=== PATIENT | female | born 1980 ===

== ENCOUNTER 2017-06-21 14:20 | Emergency (ER) | payer SELFPAY ==
[2017-06-21 14:57] VITALS: BP 141/71; PULSE 77; RESP 18; TEMP 98.1; O2SAT 99
[2017-06-21] MEDS ORDERED: Sodium Chloride 0.9% 1,000 ML IV STA (15:19)
[2017-06-21] MEDS ORDERED: Iohexol 240 (50 ml) PO ONE (15:19)
--- NOTE | 2017-06-21 15:27 | ED PDOC ---
HPI: Abdomen Time Seen by Provider: 06/21/17 15:04 Chief Complaint (Nursing): Groin Pain Chief Complaint (Provider): Abdominal pain History Per: Patient History/Exam Limitations: no limitations Onset/Duration Of Symptoms: Days (x7) Current Symptoms Are (Timing): Still Present Additional Complaint(s): Zoey Dennison is a 37 year old female with a past medical history of chronic left leg pain occurring for 2-3 years for which she takes Naproxen, presenting to the ED for an evaluation of abdominal pain and persistent left leg pain occurring for 1 week. The patient reports lower abdominal pain worsening when holding her urine. She denies dysuria, nausea, vomiting, diarrhea , urinary incontinence, urinary frequency, any changes in her menstrual cycle, shortness of breath, chest pain, fever, chills, dizziness, numbness, tingling, weakness, or headache. PMD: [facility] Past Medical History Reviewed: Historical Data, Nursing Documentation, Vital Signs Vital Signs: Last Vital Signs Temp 98.1 F 06/21/17 14:56 Pulse 77 06/21/17 14:56 Resp 18 06/21/17 14:56 BP 141/71 06/21/17 14:56 Pulse Ox 99 06/21/17 15:31 - Medical History PMH: No Chronic Diseases - Surgical History Surgical History: Cholecystectomy, - Family History Family History: States: No Known Family Hx - Social History Current smoker - smoking cessation education provided: No Ex-Smoker (has not smoked in the last 12 months): No Alcohol: None Drugs: Denies - Home Medications Home Medications: Ambulatory Orders Medication Instructions Recorded Ibuprofen [Motrin] 600 mg PO Q6H PRN #15 tab 02/19/15 - Allergies Allergies/Adverse Reactions: Allergies Allergy/AdvReac Type Severity Reaction Status Date / Time No Known Allergies Allergy Verified 06/21/17 14:50 Review of Systems ROS Statement: Except As Marked, All Systems Reviewed And Found Negative Constitutional: Negative for: Fever, Chills Respiratory: Negative for: Shortness of Breath Gastrointestinal: Positive for: Abdominal Pain (lower abdominal pain). Negative for: Nausea, Vomiting, Diarrhea Genitourinary Female: Negative for: Dysuria, Frequency, Incontinence, Vaginal Discharge, Vaginal Bleeding Musculoskeletal: Positive for: Leg Pain (left lower extremity pain (chronic)) Neurological: Negative for: Weakness, Numbness, Headache, Dizziness, Other (no tingling) Physical Exam - Reviewed Nursing Documentation Reviewed: Yes Vital Signs Reviewed: Yes - Physical Exam Appears: Positive for: Non-toxic, No Acute Distress Head Exam: Positive for: ATRAUMATIC, NORMOCEPHALIC Skin: Positive for: Normal Color, Warm, Dry Eye Exam: Positive for: Normal appearance, EOMI Neck: Positive for: Normal, Painless ROM, Supple Cardiovascular/Chest: Positive for: Regular Rate, Rhythm, Chest Non Tender. Negative for: Murmur Respiratory: Positive for: Normal Breath Sounds. Negative for: Respiratory Distress Gastrointestinal/Abdominal: Positive for: Soft, Tenderness (across lower abdomen ). Negative for: Mass, Distended, Rebound Pelvic Exam: Negative for: Other (no pelvic tenderness) Back: Positive for: Normal Inspection. Negative for: L CVA Tenderness, R CVA Tenderness, Vertebral Tenderness Extremity: Positive for: Normal ROM. Negative for: Pedal Edema, Deformity Neurologic/Psych: Positive for: Alert, Oriented (x3). Negative for: Motor/ Sensory Deficits - Laboratory Results Result Diagrams: 06/21/17 16:12 06/21/17 16:12 Interpretation Of Abn Labs: no acute - ECG O2 Sat by Pulse Oximetry: 99 (RA) Pulse Ox Interpretation: Normal - Progress ED Course And Treament: 1638: Dr. Florez to fu on ct and urine. Dispo accordingly. Medical Decision Making Medical Decision Making: Time: 15:04 Impression: Lower Abdominal Pain and chronic left lower extremity pain Plan: * CMP * CBC (with differential) * NS 0.9% 1,000 ml IV 1,000 mls/hr * Omnipaque 50 ml PO * Toradol 15 mg IVP * CT Abd Pelvis PO & IV Contrast * Reevaluation Scribe Attestation: Documented by Latesha May, acting as a scribe for Omid Guevara MD. Provider Scribe Attestation: All medical record entries made by the Scribe were at my direction and personally dictated by me. I have reviewed the chart and agree that the record accurately reflects my personal performance of the history, physical exam, medical decision making, and the department course for this patient. I have also personally directed, reviewed, and agree with the discharge instructions and disposition. Disposition - Clinical Impression Clinical Impression: Abdominal pain - Patient ED Disposition Is Patient to be Admitted: Transfer of Care - Disposition Disposition: Transfer of Care Disposition Time: 16:39 Condition: STABLE Patient Signed Over To: Rose Florez
[2017-06-21] MEDS ORDERED: Iohexol 240 (50 ml) ONE (16:17)
[2017-06-21 16:23] LABS: BASO # 0.1 K/uL (0.0-0.2); BASO % 1.1 % (0.0-2.0); EOS # 0.3 K/uL (0.0-0.7); EOS % 4.7 % (0.0-4.0); HEMATOCRIT 29.6 % (34.0-47.0); LYMPH # 2.4 K/uL (1.0-4.3); MEAN CORPUSCULAR HEMOGLOBIN 22.8 pg (27.0-31.0); MEAN CORPUSCULAR HGB CONC 30.8 g/dL (33.0-37.0); MEAN PLATELET VOLUME 7.7 fl (7.2-11.7); MONO # 0.6 K/uL (0.0-0.8); MONO % 10.3 % (0.0-10.0); NEUT # 2.2 K/uL (1.8-7.0); NEUT % 39.9 % (50.0-75.0); NRBC % 0.2 % (0.0-0.0); RED CELL DISTRIBUTION WIDTH 16.6 % (11.5-14.5); WHITE BLOOD COUNT 5.5 K/uL (4.8-10.8)
[2017-06-21 16:27] LABS: BLOOD UREA NITROGEN 13 mg/dl (7-17); CARBON DIOXIDE 27 mmol/L (22-30); CHLORIDE 103 mmol/L (98-107); GFR AFRICAN-AMERICAN > 60; GLUCOSE,RANDOM 92 mg/dL (65-105); POTASSIUM 3.7 MMOL/L (3.6-5.0); SODIUM 134 mmol/l (132-148)
[2017-06-21 16:28] LABS: ALB/GLOB RATIO 1.2 (1.0-2.1); ALKALINE PHOSPHATASE 73 U/L (38-126); ALT/SGPT 41 U/L (9-52); AST/SGOT 29 U/L (14-36); BILIRUBIN,TOTAL 0.4 mg/dl (0.2-1.3); CALCIUM 9.1 mg/dL (8.4-10.2); TOTAL PROTEIN 7.5 G/DL (6.3-8.2)
[2017-06-21] MEDS ORDERED: Iohexol 300 100 ML IJ ONE (18:52)
--- NOTE | 2017-06-21 20:36 | CT ---
EXAM: CT Abdomen and Pelvis With Intravenous Contrast EXAM DATE/TIME: 06/21/2017 3:17 PM CLINICAL HISTORY: 37 years old, female; Pain; Abdominal pain; Localized; Left lower quadrant (llq); Prior surgery; Surgery date: 6+ months; Surgery type: Gb removed. -1; Additional info: Abd pain. Sent phy. Doc. TECHNIQUE: Axial computed tomography images of the abdomen and pelvis with intravenous contrast. All CT scans at this facility use one or more dose reduction techniques, viz.: automated exposure control; ma/kV adjustment per patient size (including targeted exams where dose is matched to indication; i.e. head); or iterative reconstruction technique. Coronal and sagittal reformatted images were created and reviewed. CONTRAST: 95 mL of [id number] administered intravenously. COMPARISON: There are no prior studies for comparison. FINDINGS: Lower thorax: Heart size is normal. There are minimal patchy opacities at the right base.. There is mild pleural thickening at the right base. There is scarring greatest in the lingula and in the left lower lobe. There is minimal bronchiectasis in the left lower lobe. ABDOMEN: Liver: There is fatty infiltration of the liver. Gallbladder and bile ducts: The gallbladder is surgically absent. Common duct is prominent. There is pneumobilia. Pancreas: unremarkable Spleen: unremarkable Adrenals: unremarkable Kidneys and ureters: unremarkable Stomach and bowel: Stomach is incompletely distended. Rotation is normal. There is no small bowel obstruction.There is no pericecal inflammation. Appendix is not visualized. Terminal ileum is unremarkable.There is contrast throughout the colon. There is mild inflammation in the left lower quadrant anterolateral to the proximal sigmoid. There is a fatty nodule associated with the inflammation. There is sigmoid diverticulosis. Appendix: See stomach and bowel PELVIS: Bladder: unremarkable Reproductive: Uterus is enlarged with multiple masses. Contours are lobular. There is prominence of the adnexa. There is a dominant follicle in the right adnexa. ABDOMEN and PELVIS: Intraperitoneal space: There is no free air or free fluid. Bones/joints: There are degenerative changes in the osseus structures. Soft tissues: There is a small fat containing umbilical hernia. Vasculature: Vascular structures are unremarkable. Lymph nodes: There is no pathologic adenopathy. IMPRESSION: Cholecystectomy with mildly dilated common duct and pneumobilia; fatty liver; inflammatory change in the left lower quadrant suggesting epiploic appendicitis; diverticulosis without CT findings of diverticulitis Additional findings as described above.
--- NOTE | 2017-06-21 20:47 | ED PDOC ---
- Laboratory Results Result Diagrams: 06/21/17 16:12 06/21/17 16:12 - ECG O2 Sat by Pulse Oximetry: 99 (RA) - Progress ED Course And Treament: TECHNIQUE: Axial computed tomography images of the abdomen and pelvis with intravenous contrast. All CT scans at this facility use one or more dose reduction techniques, viz.: automated exposure control; ma/kV adjustment per patient size (including targeted exams where dose is matched to indication; i.e. head); or iterative reconstruction technique. Coronal and sagittal reformatted images were created and reviewed. CONTRAST: 95 mL of [id number] administered intravenously. COMPARISON: There are no prior studies for comparison. FINDINGS: Lower thorax: Heart size is normal. There are minimal patchy opacities at the right base.. There is mild pleural thickening at the right base. There is scarring greatest in the lingula and in the left lower lobe. There is minimal bronchiectasis in the left lower lobe. ABDOMEN: Liver: There is fatty infiltration of the liver. Gallbladder and bile ducts: The gallbladder is surgically absent. Common duct is prominent. There is pneumobilia. Pancreas: unremarkable Spleen: unremarkable Adrenals: unremarkable Kidneys and ureters: unremarkable Stomach and bowel: Stomach is incompletely distended. Rotation is normal. There is no small bowel obstruction.There is no pericecal inflammation. Appendix is not visualized. Terminal ileum is unremarkable.There is contrast throughout the colon. There is mild inflammation in the left lower quadrant anterolateral to the proximal sigmoid. There is a fatty nodule associated with the inflammation. There is sigmoid diverticulosis. Appendix: See stomach and bowel PELVIS: Bladder: unremarkable Reproductive: Uterus is enlarged with multiple masses. Contours are lobular. There is prominence of the adnexa. There is a dominant follicle in the right adnexa. ABDOMEN and PELVIS: Intraperitoneal space: There is no free air or free fluid. Bones/joints: There are degenerative changes in the osseus structures. Soft tissues: There is a small fat containing umbilical hernia. Vasculature: Vascular structures are unremarkable. Lymph nodes: There is no pathologic adenopathy. IMPRESSION: Cholecystectomy with mildly dilated common duct and pneumobilia; fatty liver; inflammatory change in the left lower quadrant suggesting epiploic appendicitis ; diverticulosis without CT findings of diverticulitis Additional findings as described above. On reevaluation pt comfortable. DW pt findings and plan of care. Rx ibuprofen and iron supplement Disposition Counseled Patient/Family Regarding: Studies Performed, Diagnosis, Need For Followup, Rx Given - Clinical Impression Clinical Impression: Abdominal pain, Epiploic appendagitis, Anemia - POA Present On Arrival: None - Disposition Referrals: [facility] [Outside] - 06/22/17 (VISITA A LA CLINICA EN 1-2 DIEZ A CHEQAR DE NUEVO) Disposition: Routine/Home Disposition Time: 20:48 Condition: IMPROVED Prescriptions: Ferrous Sulfate [Feosol] 325 mg PO TID #30 tab Ibuprofen [Motrin Tab] 600 mg PO Q8 PRN #60 tab PRN Reason: Pain, Moderate (4-7) Instructions: Acute Abdominal Pain (ED), Anemia (ED) Print Language: ISRAELI
== END 2017-06-21 21:05 | disposition home or self-care (01) ==
LOC: H.ER 14:20
DX: R10.30 Lower abdominal pain, unspecified (principal); D64.9 Anemia, unspecified; K63.89 Other specified diseases of intestine; K76.0 Fatty (change of) liver, not elsewhere classified; K83.8 Other specified diseases of biliary tract; Z87.891 Personal history of nicotine dependence; Z90.49 Acquired absence of other specified parts of digestive tract
CPT/HCPCS: 74177; 80053; 81025; 85025; 96360; 99284; J7040; Q9966; Q9967

== ENCOUNTER 2017-07-23 17:07 | Emergency (ER) | payer SELFPAY ==
[2017-07-23 17:20] VITALS: BP 142/71; PULSE 88; RESP 16; TEMP 99.6; O2SAT 100
--- NOTE | 2017-07-23 17:36 | ED PDOC ---
HPI: General Adult Time Seen by Provider: 07/23/17 17:22 Chief Complaint (Nursing): Flu-like Symptoms Chief Complaint (Provider): Flu-Like Symptoms History Per: Patient History/Exam Limitations: no limitations Onset/Duration Of Symptoms: Days (x3) Current Symptoms Are (Timing): Still Present Additional Complaint(s): 37 year old female presents to ED with complaints of flu-like symptoms x3 days and has no past medical history. (+) cough, congestion, body aches, sore throat , and fever. (-) chest pain, SOB, hemoptysis, palpitations, nausea, or vomiting. Denies receiving flu vaccine this flu season. PCP: Magali Dukes Past Medical History Reviewed: Historical Data, Nursing Documentation, Vital Signs Vital Signs: Last Vital Signs Temp 99.6 F 07/23/17 17:18 Pulse 88 07/23/17 17:18 Resp 16 07/23/17 17:18 BP 142/71 07/23/17 17:18 Pulse Ox 100 07/23/17 17:38 - Medical History PMH: No Chronic Diseases - Family History Family History: States: No Known Family Hx - Living Arrangements Living Arrangements: With Family - Home Medications Home Medications: Ambulatory Orders Medication Instructions Recorded Benzonatate [Tessalon Perle] 1 - 2 cap PO Q8 PRN #30 capsule 07/23/17 Ibuprofen [Motrin Tab] 800 mg PO Q8 PRN #20 tab 07/23/17 - Allergies Allergies/Adverse Reactions: Allergies Allergy/AdvReac Type Severity Reaction Status Date / Time No Known Allergies Allergy Verified 07/23/17 17:17 Review of Systems ROS Statement: Except As Marked, All Systems Reviewed And Found Negative Constitutional: Positive for: Fever, Other ((+) body aches) ENT: Positive for: Nose Congestion, Throat Pain Cardiovascular: Negative for: Chest Pain, Palpitations Respiratory: Positive for: Cough. Negative for: Shortness of Breath, Hemoptysis Gastrointestinal: Negative for: Nausea, Vomiting Physical Exam - Reviewed Nursing Documentation Reviewed: Yes Vital Signs Reviewed: Yes - Physical Exam Appears: Positive for: Non-toxic, No Acute Distress Skin: Positive for: Normal Color, Warm, Dry Eye Exam: Positive for: Normal appearance, EOMI, PERRL ENT: Positive for: Normal ENT Inspection Neck: Positive for: Normal, Painless ROM, Supple Cardiovascular/Chest: Positive for: Regular Rate, Rhythm. Negative for: Murmur Respiratory: Positive for: Normal Breath Sounds. Negative for: Respiratory Distress Gastrointestinal/Abdominal: Positive for: Soft. Negative for: Tenderness Neurologic/Psych: Positive for: Alert, Oriented. Negative for: Motor/Sensory Deficits - ECG O2 Sat by Pulse Oximetry: 100 (RA) Pulse Ox Interpretation: Normal Medical Decision Making Medical Decision Makin Initial impression: flu-like illness Scribe Attestation: Documented by Isabel Crawford, acting as a scribe for Charan Rain PA-C. Provider Scribe Attestation: All medical record entries made by the Scribe were at my direction and personally dictated by me. I have reviewed the chart and agree that the record accurately reflects my personal performance of the history, physical exam, medical decision making, and the department course for this patient. I have also personally directed, reviewed, and agree with the discharge instructions and disposition. Disposition - Clinical Impression Clinical Impression: Influenza-like symptoms - Disposition Referrals: [facility] [Outside] Disposition: Routine/Home Disposition Time: 17:34 Condition: STABLE Additional Instructions: Drink plenty of fluids. Rest. Follow up with PMD in 2 days for further evaluation. Prescriptions: Benzonatate [Tessalon Perle] 1 - 2 cap PO Q8 PRN #30 capsule PRN Reason: Cough Ibuprofen [Motrin Tab] 800 mg PO Q8 PRN #20 tab PRN Reason: Fever >100.4 F Instructions: Influenza (ED) Forms: [employer] (Omani), [facility] ED School/Work Excuse Print Language: GABONESE
--- NOTE | 2017-07-23 17:36 | ED PDOC ---
HPI: General Adult Time Seen by Provider: 07/23/17 17:22 Chief Complaint (Nursing): Flu-like Symptoms Past Medical History Vital Signs: Last Vital Signs Temp 99.6 F 07/23/17 17:18 Pulse 88 07/23/17 17:18 Resp 16 07/23/17 17:18 BP 142/71 07/23/17 17:18 Pulse Ox 100 07/23/17 17:18 - Family History Family History: States: No Known Family Hx - Home Medications Home Medications: Ambulatory Orders Medication Instructions Recorded Benzonatate [Tessalon Perle] 1 - 2 cap PO Q8 PRN #30 capsule 07/23/17 Ibuprofen [Motrin Tab] 800 mg PO Q8 PRN #20 tab 07/23/17 - Allergies Allergies/Adverse Reactions: Allergies Allergy/AdvReac Type Severity Reaction Status Date / Time No Known Allergies Allergy Verified 07/23/17 17:17 - ECG O2 Sat by Pulse Oximetry: 100 Disposition - Clinical Impression Clinical Impression: Influenza-like symptoms - Patient ED Disposition Is Patient to be Admitted: No - Disposition Referrals: [facility] [Outside] Disposition: Routine/Home Disposition Time: 17:34 Condition: STABLE Additional Instructions: Drink plenty of fluids. Rest. Follow up with PMD in 2 days for further evaluation. Prescriptions: Benzonatate [Tessalon Perle] 1 - 2 cap PO Q8 PRN #30 capsule PRN Reason: Cough Ibuprofen [Motrin Tab] 800 mg PO Q8 PRN #20 tab PRN Reason: Fever >100.4 F Instructions: Influenza (ED) Forms: [employer] (Burmese), [facility] ED School/Work Excuse Print Language: POLISH
== END 2017-07-23 17:47 | disposition home or self-care (01) ==
LOC: H.ER 17:07 → MERGE 17:07 → H.ER 17:47
DX: J11.1 Influenza due to unidentified influenza virus with other respiratory manifestations (principal)

== ENCOUNTER 2018-05-21 15:02 | Emergency (ER) | payer OTHER, SELFPAY ==
[2018-05-21 15:18] VITALS: BP 141/80; PULSE 82; RESP 18; TEMP 98.5; O2SAT 99
--- NOTE | 2018-05-21 16:04 | ED PDOC ---
HPI: Headache Time Seen by Provider: 05/21/18 15:38 Chief Complaint (Nursing): Headache Chief Complaint (Provider): headache History Per: Patient History/Exam Limitations: no limitations Onset/Duration Of Symptoms: Days (started last night) Current Symptoms Are (Timing): Still Present Severity: Mild Quality: Dull Preceeding Symptoms: None. denies: Visual Disturbances Associated Symptoms: denies: Photophobia, Blurred Vision, Nausea, Vomiting Additional History Per: Patient Additional Complaint(s): Pt. is a 38 y/o Female who reports to ED for headache that started last night. Pt. reports headache is diffuse, gradual in onset, no associated n/v, photophobia. Pt. reports history of similar headaches in past, but they usually improve with tylenol and this this time she took two doses of tylenol with little improvement. Pt. also reports mild crampy right upper abdominal pain that has been intermittent today, no associated n/v/d, no fevers. Appetite remains good. Past Medical History Reviewed: Historical Data, Nursing Documentation, Vital Signs Vital Signs: Last Vital Signs Temp 98.5 F 05/21/18 15:16 Pulse 82 05/21/18 15:16 Resp 18 05/21/18 15:16 BP 141/80 05/21/18 15:16 Pulse Ox 99 05/21/18 15:16 - Medical History PMH: No Chronic Diseases - Surgical History Surgical History: Cholecystectomy, - Family History Family History: States: Unknown Family Hx - Home Medications Home Medications: Ambulatory Orders Medication Instructions Recorded Ibuprofen [Motrin] 600 mg PO Q6H PRN #15 tab 02/19/15 Ferrous Sulfate [Feosol] 325 mg PO TID #30 tab 06/21/17 Ibuprofen [Motrin Tab] 600 mg PO Q8 PRN #60 tab 06/21/17 Benzonatate [Tessalon Perle] 1 - 2 cap PO Q8 PRN #30 capsule 07/23/17 Ibuprofen [Motrin Tab] 800 mg PO Q8 PRN #20 tab 07/23/17 Ferrous Sulfate, Dried [Iron] 160 mg PO DAILY #30 tablet.er 05/21/18 Ibuprofen [Motrin Tab] 600 mg PO TID PRN 5 Days #15 tab 05/21/18 - Allergies Allergies/Adverse Reactions: Allergies Allergy/AdvReac Type Severity Reaction Status Date / Time No Known Allergies Allergy Verified 06/21/17 14:50 Review of Systems Constitutional: Negative for: Fever, Chills, Sweats Eyes: Negative for: Vision Change ENT: Negative for: Ear Pain, Nose Congestion Cardiovascular: Negative for: Chest Pain Respiratory: Negative for: Cough Gastrointestinal: Positive for: Abdominal Pain. Negative for: Nausea, Vomiting Physical Exam - Reviewed Vital Signs Reviewed: Yes - Physical Exam Appears: Positive for: Well, Non-toxic Head Exam: Positive for: ATRAUMATIC Skin: Positive for: Normal Color, Warm, Dry Eye Exam: Positive for: Normal appearance, EOMI, PERRL ENT: Positive for: Normal ENT Inspection Neck: Positive for: Normal, Painless ROM, Supple Cardiovascular/Chest: Positive for: Regular Rate, Rhythm Respiratory: Positive for: Normal Breath Sounds Gastrointestinal/Abdominal: Positive for: Soft, Tenderness (minimal diffuse abdominal tenderness). Negative for: Distended, Guarding, Rebound - Laboratory Results Result Diagrams: 05/21/18 16:22 05/21/18 16:22 - ECG O2 Sat by Pulse Oximetry: 99 Pulse Ox Interpretation: Normal Medical Decision Making Medical Decision Making: IVF, IV Reglan, IV Toradol given. Labs ordered. u. preg neg On reassessment, pt. feeling better, no further headache..Pt. ambulating with steady gait. Repeat abd. exam, abd. is soft/nt, pt. tolerating po. Labs as above, mild anemia hgb 8.8, however not sig. changed from previous labs hgb 9.1 will rx fe Disposition - Clinical Impression Clinical Impression: Headache, Anemia - Patient ED Disposition Is Patient to be Admitted: No Doctor Will See Patient In The: ED Counseled Patient/Family Regarding: Studies Performed, Diagnosis, Need For Followup, Rx Given - Disposition Disposition: Routine/Home Disposition Time: 17:44 Condition: IMPROVED Prescriptions: Ferrous Sulfate, Dried [Iron] 160 mg PO DAILY #30 tablet.er Ibuprofen [Motrin Tab] 600 mg PO TID PRN 5 Days #15 tab PRN Reason: Pain, Moderate (4-7) Instructions: Migraine Headache (DC), Normocytic Normochromic Anemia (DC) Forms: [employer] (Tongan) Print Language: SAMI
[2018-05-21 16:11] LABS: URINE BILIRUBIN NEGATIVE (NEGATIVE); URINE BLOOD NEGATIVE (NEGATIVE); URINE CLARITY CLOUDY (Clear); URINE COLOR YELLOW (YELLOW); URINE GLUCOSE (UA) NEG (Normal); URINE LEUKOCYTE ESTERASE TRACE Leu/uL (Negative); URINE PROTEIN NEGATIVE (NEGATIVE); URINE UROBILINOGEN 0.2-1.0 mg/dL (0.2-1.0)
[2018-05-21] MEDS ORDERED: Sodium Chloride 0.9% 1,000 ML IV SCH (16:15)
[2018-05-21 16:28] LABS: BASO # 0.1 K/uL (0.0-0.2); BASO % 1.3 % (0.0-2.0); EOS # 0.3 K/uL (0.0-0.7); EOS % 3.9 % (0.0-4.0); HEMOGLOBIN 8.8 g/dL (12.0-16.0); LYMPH # 2.5 K/uL (1.0-4.3); LYMPH % 36.9 % (20.0-40.0); MEAN CORPUSCULAR HEMOGLOBIN 20.7 pg (27.0-31.0); MEAN CORPUSCULAR HGB CONC 30.5 g/dL (33.0-37.0); MEAN PLATELET VOLUME 7.8 fl (7.2-11.7); MONO # 0.7 K/uL (0.0-0.8); MONO % 9.8 % (0.0-10.0); NEUT # 3.2 K/uL (1.8-7.0); NEUT % 48.1 % (50.0-75.0); RBC 4.25 Mil/uL (3.80-5.20); RED CELL DISTRIBUTION WIDTH 18.4 % (11.5-14.5); WHITE BLOOD COUNT 6.7 K/uL (4.8-10.8)
[2018-05-21 16:46] LABS: ALBUMIN 4.3 g/dL (3.5-5.0); BLOOD UREA NITROGEN 14 mg/dl (7-17); GFR NON-AFRICAN AMERICAN > 60
[2018-05-21 16:47] LABS: ALB/GLOB RATIO 1.2 (1.0-2.1); LIPASE 75 U/L (23-300)
[2018-05-21 16:55] LABS: ALT/SGPT 44 U/L (9-52); AST/SGOT 44 U/L (14-36)
== END 2018-05-21 17:57 | disposition home or self-care (01) ==
LOC: H.ER 15:02
DX: R51 Headache (principal); D64.9 Anemia, unspecified
CPT/HCPCS: 80053; 81003; 81025; 83690; 85025; 96374; 96375; 99285; J1885; J2765; J7030